=== PATIENT | female | born 1960 | race Hispanic/Latino ===

== ENCOUNTER 2017-12-13 12:37 | Emergency (ER) | payer BC ==
[2017-12-13 14:01] VITALS: BP 112/69
[2017-12-13 14:28] LABS: Basophils # (Auto) 0.1 K/mm3 (0.0-0.1); Eosinophils # (Auto) 0.1 K/mm3 (0.0-0.4); Eosinophils % (Auto) 0.8 % (0.0-4.3); Hematocrit 42.1 % (30.3-42.9); Hemoglobin 13.9 gm/dl (10.1-14.3); Lymphocytes # (Auto) 2.8 K/mm3 (1.2-5.4); Lymphocytes % (Auto) 23.8 % (13.4-35.0); Mean Corpuscular HGB Conc 33 % (30-34); Mean Corpuscular Hemoglobin 31 pg (28-32); Mean Corpuscular Volume 95 fl (79-97); Monocytes # (Auto) 0.6 K/mm3 (0.0-0.8); Monocytes % (Auto) 4.8 % (0.0-7.3); Platelet Count 297 K/mm3 (140-440); Red Blood Count 4.45 M/mm3 (3.65-5.03); Red Cell Distribution Width 12.7 % (13.2-15.2)
[2017-12-13 14:47] LABS: BUN/Creatinine Ratio 18; Blood Urea Nitrogen 14 mg/dL (7-17); Calcium 8.1 mg/dL (8.4-10.2); Hemolysis Index 7
== END 2017-12-13 17:22 | disposition left against medical advice (07) ==
LOC: ED 12:37
DX: N93.9 Abnormal uterine and vaginal bleeding, unspecified (principal); Z53.21 Procedure and treatment not carried out due to patient leaving prior to being seen by health care provider
CPT/HCPCS: 36415; 80048; 85025

== ENCOUNTER 2017-12-18 07:46 | Day surgery (SDC) | payer BC ==
--- NOTE | 2017-12-17 17:28 | History and Physical Report ---
History of Present Illness Date of examination: 12/15/17 History of present illness: Patient has been reassessed/reevaluated. H&P has been reviewed. No interval changes. This is a 57 years old female who presents with menstrual disorder. The symptoms began 3 months ago[address] Patient of Dr Bergeron with postmenopausal bleeding. Patient has been treated with mutiple hormonal treatments by her PCP and Dr Bergeron without resolution. Patient's work up has included in the past hysterosonogram revealing probable polyp and benign endometrial biopsy Patient desires definitive treatment . The patient complains of spotting, menses, lack of menses and cramping, but denies heavy bleeding, dysmenhorrhea, she may be , history of thyroid disease, history of fibroids, history of bleeding disorders, lightheadness, orthostatic symptoms and fatigue. Menstrual periods have been irregular. Interval between menses is < 10 days. Number of pads used per day is 1-3. Menstrual flow lasts >7 days. Vital Signs: Patient Profile: 57 Years Old Female Height: 65 inches (165.10 cm) Weight: 179 pounds (81.36 kg) BMI: 29.78 BSA: 1.89 Current Method of Contraception: None Past History Term Births: 2 Premature Births: 0 Mult. Births: 0 Prev : 2 Prev. attempt? 0 Aborta: 0 Elect. Ab: 0 Spont. Ab: 0 [employer] History Operations: C-sectionX2 Tubal Ligation Right arm fracture(2014) Abnormal PAP: negative Infection History HIV Risk Eval: no TB exposure: no Personal hx. of genital herpes: no Partner hx. of genital herpes: no Rash/viral illness since LMP: no Hx of STD: None Current Allergies (reviewed today): No known allergies Past Medical History: Anxiety Hypothyroidism Past Surgical History: C-sectionX2 Tubal Ligation Right arm fracture(2014) Family History Summary: Family History of Diabetes father t2dm, Family History of Hypertension mother father Parkinson's Social History: . not active Smoking History: Patient has never smoked. Risk Factors: Smoked Tobacco Use: Never smoker Smokeless Tobacco Use: Never Passive smoke exposure: no Drug use: no HIV high-risk behavior: no Alcohol use: yes Type: occ Exercise: no Seatbelt use: 100 % Review of Systems General Denies fever, chills, sweats, anorexia, fatigue, weakness, malaise, weight loss and sleep disorder. Complains of menorrhagia and abnormal vaginal bleeding. Denies vaginal discharge, incontinence, dysuria, hematuria, urinary frequency, amenorrhea, pelvic pain, genital sores, decreased libido, painful periods, painful sex, urinary urgency, hot flashes, vaginal dryness, vaginal itching and vaginal odor. CV Denies chest pains, palpitations, syncope, dyspnea on exertion, orthopnea, PND and peripheral edema. Resp Denies cough, dyspnea at rest, excessive sputum, hemoptysis, wheezing and pleurisy. GI Denies nausea, vomiting, diarrhea, constipation, change in bowel habits, abdominal pain, melena, hematochezia, jaundice, gas/bloating, indigestion/ heartburn, dysphagia and odynophagia. Breast Denies left breast lump, right breast lump, nipple discharge, bloody discharge from nipple, breast pain, abnormal mammogram and breast enlargement. Psych Complains of anxiety. Denies depression, irritability and mood swings. Past History Past Medical History: other (See HPI) Past Surgical History: Other (See HPI) Social history: full code (See HPI) Family history: other (See HPI) Medications and Allergies Allergies Allergy/AdvReac Type Severity Reaction Status Date / Time No Known Allergies Allergy Unverified 12/17/17 13:00 Home Medications Medication Instructions Recorded Confirmed Last Taken Type Phentermine HCl [Adipex-P] 37.5 mg PO QAM 12/17/17 12/17/17 12/17/17 08:00 History Thyroid,Pork [[place] Thyroid] 60 mg PO DAILY 12/17/17 12/17/17 Unknown History Review of Systems Constitutional: other (See HPI) Exam - Physical Exam Narrative exam: HEENT: normocephalic, no lesions or deformities Skin no edema CV: regular, normal S1-S2, no murmur, no rub, no gallop Abdomen: soft, non-tender, no masses, bowel sounds normal Musculoskeletal: grossly normal ROM in joints, no joint tenderness or muscle weakness Neuro: no gross anomalities Extremities: no edema [employer] Exams Vulva/Vagina: normal appearance, no discharge, lesions. No evidence of cystocele or rectocele. Cervix: No lesions; no cervical motion tenderness Uterus: normal position, midline, mobile Adnexae: negative Rectovaginal: exam defered Assessment and Plan - Patient Problems (1) Postmenopausal bleeding Current Visit: No Status: Acute Plan to address problem: Patient's symptoms when present disrupts her normal daily activities Patient desires definitive treatment Medical and surgical treatment options discussed. Patient has failed medical treatments. Patient desires definitive treatment Patient desires least invasive procedure Patient desires hysteroscopy with D&C Discussed risk of surgery including infection, bleeding and risk of perforating her uterus. Questions answered. Patient understands and desires to proceed (2) Hypothyroidism Current Visit: No Status: Acute Qualifiers: Hypothyroidism type: unspecified Qualified Code(s): E03.9 - Hypothyroidism , unspecified (3) Anxiety Current Visit: No Status: Chronic
[~2017-12-18 07:46] MED LIST: NACL 0.9% 1000 ML 1,000 ML IV SCH; NACL 0.9% IR ONE
[2017-12-18] MEDS ORDERED: LACTATED RINGERS 1,000 ML IV SCH ×2 (08:00→09:00)
[2017-12-18] MEDS ORDERED: VERSED IV NR (08:00)
[2017-12-18] MEDS ORDERED: NACL BACTERIOSTATIC INFILTRATI ONE (08:13)
[2017-12-18 08:55] LABS: Basophils # (Auto) 0.1 K/mm3 (0.0-0.1); Eosinophils # (Auto) 0.2 K/mm3 (0.0-0.4); Eosinophils % (Auto) 3.1 % (0.0-4.3); Hematocrit 36.3 % (30.3-42.9); Hemoglobin 11.8 gm/dl (10.1-14.3); Mean Corpuscular HGB Conc 33 % (30-34); Mean Corpuscular Hemoglobin 31 pg (28-32); Mean Corpuscular Volume 95 fl (79-97); Monocytes # (Auto) 0.5 K/mm3 (0.0-0.8); Monocytes % (Auto) 7.5 % (0.0-7.3); Platelet Count 261 K/mm3 (140-440); Red Blood Count 3.82 M/mm3 (3.65-5.03); Red Cell Distribution Width 12.8 % (13.2-15.2)
[2017-12-18] MEDS ORDERED: ZOFRAN IV PRN (08:55)
[2017-12-18] MEDS ORDERED: TORADOL IV PRN (08:55)
--- NOTE | 2017-12-18 08:56 | Anesthesia Day of Surgery ---
Anesthesia Day of Surgery - Day of Surgery Patient Examined: Yes Patient H&P Reviewed: Yes Patient is NPO: Yes
--- NOTE | 2017-12-18 08:57 | Anesthesia Consultation ---
Anesthesia Consult and Med Hx - Airway Anesthetic Teeth Evaluation: Good ROM Head & Neck: Adequate Mental/Hyoid Distance: Adequate Mallampati Class: Class I Intubation Access Assessment: Good - Pulmonary Exam CTA: Yes - Cardiac Exam Cardiac Exam: RRR - Pre-Operative Health Status ASA Pre-Surgery Classification: ASA2 Proposed Anesthetic Plan: General - Pulmonary Hx Smoking: Yes (former) - Central Nervous System Hx Psychiatric Problems: No - Other Systems Hx Alcohol Use: Yes (occas) Hx Cancer: No
[2017-12-18] MEDS ORDERED: DIPRIVAN 10 MG/ML IV ONE (08:58)
[2017-12-18] MEDS ORDERED: XYLOCAINE MPF 2% ONE (08:59)
[2017-12-18] MEDS ORDERED: NACL 0.9% IR ONE (09:00)
[2017-12-18] MEDS ORDERED: ZOFRAN ONE (09:25)
[2017-12-18] MEDS ORDERED: SILVER NITRATE TP ONE ×2 (09:29→09:52)
[2017-12-18] MEDS ORDERED: TORADOL ONE (09:46)
--- NOTE | 2017-12-18 10:15 | Operative Report ---
Operative Report Operative Report: Date of procedure: 12/18/2017 Pre-operative diagnosis: Postmenopausal bleeding Post-operative diagnosis: Same plus endometrial polyp Procedure name(s): Operative hysteroscopy with MyoSure and dilatation and curettage Surgeon: Juan Walker MD Patient Service Representative: [] Anesthesia: Gen. EBL: Minimal Complications: None Findings: Patient with thickened endometrium and polypoid lesions. Both uterine ostia were seen Specimen(s): Uterine mass and endometrial curetting Procedure: Patient was brought into the operating room, where general anesthesia was induced without any difficulty. Patient was placed in dorsal lithotomy position. Prep and drape in the usual sterile manner. Timeout procedure was performed. The patient's bladder was emptied with a red rubber catheter. Speculum was placed in the vagina. Tenaculum was placed at 12:00 on the cervix. The cervical os was dilated to a 19 [place] diameter. The hysteroscope was placed and the findings noted above. The MyoSure device was primed. The device was placed through the cervical os. The masses were then removed using the MyoSure. The mass was completely removed with no evidence of puncture on the uterine wall. All instruments were then removed. Dilatation and curettage was then done with a banjo curet to a gritty cessation was felt throughout the uterine cavity. Moderate amount of tissue was removed. All instruments were removed. Patient then had hemostasis after several nitrate was placed over the tenaculum site. The patient was awakened in the operating room and accompanied to recovery room in good condition.
[2017-12-18] MEDS: DILAUDID IV PRN ×3 (10:19→10:50)
--- NOTE | 2017-12-18 10:19 | Short Stay Summary ---
Short Stay Documentation Date of service: 12/18/17 - History H&P: dictated Past Medical History: other (See HPI) Past Surgical History: Other (See HPI) Social history: full code (See HPI) - Allergies and Medications Current Medications: Allergies No Known Allergies Allergy (Unverified 12/17/17 13:00) Home Medications Medication Instructions Recorded Confirmed Last Taken Type Phentermine HCl [Adipex-P] 37.5 mg PO QAM 12/17/17 12/18/17 12/16/17 08:00 History Thyroid,Pork [[place] Thyroid] 60 mg PO DAILY 12/17/17 12/18/17 12/17/17 History Acetaminophen/Codeine [Tylenol #3] 1 tab PO Q4HR PRN #20 tablet 12/18/17 Unknown Rx Doxycycline [Vibramycin CAP] 100 mg PO Q12HR #14 capsule 12/18/17 Unknown Rx Ibuprofen [Motrin 800 MG tab] 800 mg PO Q6H PRN #30 tablet 12/18/17 Unknown Rx Active Medications Hydromorphone HCl (Dilaudid) 0.5 mg IV Q10MIN PRN PRN Reason: Pain , Severe (7-10) Stop: 12/18/17 13:00 Sodium Chloride (Nacl 0.9% 1000 Ml) 1,000 mls @ 150 mls/hr IV DIRECT JENN Lactated Ringer's (Lactated Ringers) 1,000 mls @ 100 mls/hr IV DIRECT JENN Last Admin: 12/18/17 08:35 Dose: 100 mls/hr Lactated Ringer's (Lactated Ringers) 1,000 mls @ 100 mls/hr IV DIRECT JENN Ketorolac Tromethamine (Toradol) 30 mg IV ONCE PRN PRN Reason: Pain, Moderate (4-6) Stop: 12/18/17 12:00 Midazolam HCl (Versed) 2 mg IV PREOP NR Stop: 12/18/17 23:59 Last Admin: 12/18/17 08:45 Dose: 2 mg Ondansetron HCl (Zofran) 4 mg IV ONCE PRN PRN Reason: Nausea And Vomiting Stop: 12/18/17 12:00 - Brief post op/procedure progress note Date of procedure: 12/18/17 (See dictated operative note) - Hospital course Hospital course: Patient was admitted underwent the above him procedure without any complications. Patient will be discharged with follow-up in office in 1-2 weeks for postop check. - Disposition Condition at discharge: Good Disposition: [id number]-01 TO HOME OR SELFCARE - Discharge Diagnoses (1) Postmenopausal bleeding Status: Acute (2) Hypothyroidism Status: Acute Qualifiers: Hypothyroidism type: unspecified Qualified Code(s): E03.9 - Hypothyroidism , unspecified (3) Anxiety Status: Chronic Short Stay Discharge Plan Activity: advance as tolerated Diet: regular Follow up with: CLINT AMARAL MD [Primary Care Provider] - 7 Days Prescriptions: Ibuprofen [Motrin 800 MG tab] 800 mg PO Q6H PRN #30 tablet PRN Reason: Pain Acetaminophen/Codeine [Tylenol #3] 1 tab PO Q4HR PRN #20 tablet PRN Reason: Pain Doxycycline [Vibramycin CAP] 100 mg PO Q12HR #14 capsule
[2017-12-18] MEDS ORDERED: TYLENOL #3 PO SCH (11:16)
[2017-12-18 12:28] VITALS: BP 97/31
--- NOTE | 2017-12-18 15:35 | Post Anesthesia Evaluation ---
- Post Anesthesia Evaluation Patient Participated: Yes Airway Patent: Yes Stable Respiratory Function: Yes Nausea/Vomiting: No Temp > 96.8F: Yes Pain Manageable: Yes
== END 2017-12-18 12:25 | disposition home or self-care (01) ==
LOC: OR 07:46
PROVIDERS: ATTEND Obstetrics & Gynecology
DX: N71.1 Chronic inflammatory disease of uterus (principal); N84.0 Polyp of corpus uteri; Z98.51 Tubal ligation status; Z87.891 Personal history of nicotine dependence
CPT/HCPCS: 36415; 58558; 81025; 85025; 86850; 86900; 86901; 88305; A4217; C1782; J1170; J1885; J2250; J2405; J2704; J7120